=== PATIENT | male | born 1980 | race Caucasian/White ===

== ENCOUNTER → 2018-10-08 17:26 | Outpatient (CLI) | payer OTHER, SELFPAY ==
--- NOTE | 2018-10-08 17:32 | DI.MRI.S_ITS ---
PROCEDURE: MR HEAD/BRAIN WO CON INDICATIONS: MIGRAINE TECHNIQUE: Noncontrast axial T1 spin echo, axial T2 fast spin echo, sagittal and axial FLAIR, coronal T2 fast spin echo, axial gradient echo, axial diffusion and ADC through the brain. COMPARISON: None. FINDINGS: Image quality: Excellent. CSF Spaces: Basal cisterns are patent. No extra-axial fluid collections. Ventricles are normal in size and shape. Brain: No intracranial masses or hemorrhage. Ayala/white matter interface is normal. Brainstem appears normal. Diffusion-weighted images demonstrate no acute ischemic insult. No chronic ischemic insults. Normal intravascular flow voids are present. Skull and face: Calvarium has normal marrow signal. Orbits appear normal. Sinuses: Sinuses and mastoids are clear. IMPRESSION: Normal brain MRI, without an imaging explanation found for the patient's presenting history of migraine headaches. Dictated by: South Justice M.D. on 10/08/2018 at 17:23 Approved by: South Justice M.D. on 10/08/2018 at 17:24
== END ==
PROVIDERS: Visit Provider Physician Assistant
DX: G43.909 Migraine, unspecified, not intractable, without status migrainosus (principal)
CPT/HCPCS: 70551

== ENCOUNTER 2019-01-08 12:39 | Emergency (ER) | payer OTHER, SELFPAY ==
[2019-01-08 12:40] VITALS: BP 126/87; PULSE 110; RESP 20; TEMP 36.3; O2SAT 99
--- NOTE | 2019-01-08 13:44 | ED.BACK ---
HPI - Back Pain/Injury <MIMI Dobbins - Last Filed: 01/08/19 21:58> General Chief Complaint: Back Pain/Injury Stated Complaint: SLIPPED ON ICE,TWEAKED LOWER BACK Time Seen by Provider: 01/08/19 13:20 Source: patient Mode of arrival: ambulatory Limitations: no limitations History of Present Illness HPI Narrative: 39-year-old male with history of migraines is a former smoker here for complaint of pain into his left lower back over the past couple of days. He states that he was stepping out of his truck when he slipped on the ice causing him to tweak in his lower back. He denies any trauma to the lower back. He denies any loss of bladder or bowel control. Increased pain with motion of the the painful area. He is ambulatory into the emergency room. He denies any numbness to the groin area. Pain is limited to the left lower back. MD Complaint: back pain Duration: constant Location: left lower back Severity: similar to previous episodes Related Data Home Medications Medication Instructions Recorded Confirmed ibuprofen 200 mg tablet 200 mg PO QID PRN 12/23/18 01/08/19 multivitamin 1 tab PO DAILY 01/08/19 01/08/19 sumatriptan succinate 1 dose PO PRN PRN 01/08/19 01/08/19 Previous Rx's Medication Instructions Recorded cyclobenzaprine 10 mg PO TID PRN #20 tab 01/08/19 Allergies Allergy/AdvReac Type Severity Reaction Status Date / Time No Known Drug Allergies Allergy Unverified 01/08/19 12:44 Review of Systems <MIMI Dobbins - Last Filed: 01/08/19 21:58> Constitutional Denies chills, Denies fever(s), Denies lethargy and Denies weakness Eyes Denies change in vision, Denies eye discharge, Denies irritation and Denies loss of vision ENT Ears, Nose, Mouth, and Throat: Denies change in voice, Denies neck pain and Denies sore throat Cardiovascular Denies chest pain, Denies irregular heart rhythm, Denies lightheadedness, Denies palpitations, Denies dyspnea, Denies dyspnea on exertion and Denies orthopnea Respiratory Denies cough, Denies dyspnea, Denies dyspnea on exertion and Denies wheezing Gastrointestinal Gastrointestinal: Denies abdominal pain, Denies change in bowel habits, Denies diarrhea, Denies nausea and Denies vomiting Genitourinary Denies hematuria, Denies flank pain, Denies urinary incontinence and Denies urinary urgency Musculoskeletal Denies neck pain Comments: Left back pain Integumentary/Breasts Denies pruritus, Denies erythema, Denies rash and Denies wounds Neurologic Denies confusion, Denies loss of vision and Denies weakness Psychiatric Denies anxiety, Denies confusion, Denies depression, Denies homicidal ideation and Denies suicidal ideation Endocrine Denies palpitations Hematologic/Lymphatic Denies easy bruising Allergic/Immunologic Denies wheezing PFSH <MIMI Dobbins - Last Filed: 01/08/19 21:58> Social History Smoking Status: Former smoker Social History Smoking Status: Former smoker Exam <MIMI Dobbins - Last Filed: 01/08/19 21:58> Initial Vital Signs Initial Vital Signs: Vital Signs Temperature 97.4 F L 01/08/19 12:40 Pulse Rate 110 H 01/08/19 12:40 Respiratory Rate 20 01/08/19 12:40 Blood Pressure 126/87 01/08/19 12:40 Pulse Oximetry 99 01/08/19 12:40 Const General: cooperative and well developed Nutritional Appearance: well nourished Orientation: alert, awake, oriented x3 and not confused HENMT Mouth: oral mucosae normal and moist mucous membranes Eyes Conjunctivae: conjunctivae normal Sclera: sclerae normal Pupils: PERRL EOM: EOM intact bilaterally Resp Effort & Inspection: normal respiratory effort, able to speak in complete sentences, no respiratory distress and no use of accessory muscles Auscultation: clear to auscultation bilaterally, no rales, no rhonchi and no wheezes Cardio Rate: regular rate Rhythm: regular rhythm Heart Sounds: no click, no gallops, no murmurs and no rubs Pulses: normal peripheral pulses Back/Spine/Pelvis Other: tenderness to the left lumbar paraspinals with muscle spasm. No signs of trauma. No midline tenderness. Distal CMS is intact Skin General: no rashes or lesions noted, No jaundice and No petechiae Neuro General: alert, oriented x3, gait normal and no focal motor deficits Speech: speech normal <Tenzin Jackson DO - Last Filed: 01/09/19 18:35> Initial Vital Signs Initial Vital Signs: Vital Signs Temperature 97.4 F L 01/08/19 12:40 Pulse Rate 110 H 01/08/19 12:40 Respiratory Rate 20 01/08/19 12:40 Blood Pressure 126/87 01/08/19 12:40 Pulse Oximetry 99 01/08/19 12:40 Course <MIMI Dobbins - Last Filed: 01/08/19 21:58> Vital Signs - 8 hr 01/08/19 14:06 Pulse Rate 87 Respiratory Rate 16 Blood Pressure [Left Arm] 118/83 Pulse Oximetry 100 <Tenzin Jackson DO - Last Filed: 01/09/19 18:35> Vital Signs - 8 hr 01/08/19 14:06 Pulse Rate 87 Respiratory Rate 16 Blood Pressure [Left Arm] 118/83 Pulse Oximetry 100 MDM - Back Pain/Injury <MIMI Dobbins - Last Filed: 01/08/19 21:58> MDM Narrative Medical decision making narrative: signs and symptoms presents as acute lumbar strain with muscle spasm to the left paraspinals. [id number] ibuprofen as needed for discomfort. Cyclobenzaprine as prescribed to help with muscle spasm. Rest area. Gentle range of motion to painful areas to help keep muscle fluids. Follow up with primary care provider. May use heat to area 20 min at a time a few times a day over the next few days. for any worsening symptoms return emergency room. Discharge Plan Departure Patient Disposition: Home Clinical Impression: Strain of lumbar region Qualifiers: Encounter type: initial encounter Qualified Code(s): S39.012A - Strain of muscle, fascia and tendon of lower back, initial encounter Discharge Date/Time: 01/08/19 14:55 Interventions: ED Discharge Assessment Last Done: 01/08/19 14:31 Instructions: DI for Back Strain or Sprain Activity Restrictions/Additional Instructions: signs and symptoms presents as acute lumbar strain with muscle spasm to the left paraspinals. [id number] ibuprofen as needed for discomfort. Cyclobenzaprine as prescribed to help with muscle spasm. Rest area. Gentle range of motion to painful areas to help keep muscle fluids. Follow up with primary care provider. May use heat to area 20 min at a time a few times a day over the next few days. for any worsening symptoms return emergency room. Prescriptions: New cyclobenzaprine 10 mg tablet 10 mg PO TID PRN (Reason: muscle spasm) Qty: 20 RF: 0 No Action sumatriptan succinate 25 mg tablet 1 dose PO PRN PRN (Reason: Migraine Headache) RF: 0 multivitamin Tablet 1 tab PO DAILY RF: 0 ibuprofen 200 mg tablet 200 mg PO QID PRN (Reason: pain) RF: 0 Referrals: [facility] [Provider Group] <Tenzin Jackson DO - Last Filed: 01/09/19 18:35> [facility] ED Attending Chaitanya Attestation: I was available for consultation during this patient's emergency department encounter
[2019-01-08 14:06] VITALS: BP 118/83; PULSE 87; RESP 16; O2SAT 100
== END 2019-01-08 14:55 | disposition home or self-care (01) ==
PROVIDERS: Emergency Provider Nurse Practitioner Family
DX: S39.012A Strain of muscle, fascia and tendon of lower back, initial encounter (principal); W01.0XXA Fall on same level from slipping, tripping and stumbling without subsequent striking against object, initial encounter
CPT/HCPCS: 99282